=== PATIENT | female | born 1950 | race Caucasian/White ===

== ENCOUNTER 2018-06-26 05:22 | Day surgery (SDC) | payer MEDICARE ==
[~2018-06-26] VITALS: Ht 167.6 cm; Wt 81.2 kg
[2018-06-26 06:23] VITALS: BP 141/76; Ht 167.6 cm; Wt 81.2 kg
[2018-06-26 06:28] LABS: CALC OSMOLALITY 287 mosm/kg (275-300); CALCIUM 9.9 mg/dL (8.5-10.1); CARBON DIOXIDE 27.3 mmol/L (21.0-32.0); CHLORIDE - SERUM 106 mmol/L (98-107); CREATININE - SERUM 0.7 mg/dL (0.6-1.3); GLUCOSE 119 mg/dL (74-106); POTASSIUM - SERUM 3.6 mmol/L (3.5-5.1); SODIUM 143 mmol/L (136-145); UREA NITROGEN 19 mg/dL (7-18); eGFR NON AFRICAN AMERICAN 88 mL/min (90-120)
[2018-06-26 06:31] LABS: BASOPHILS 1.4 % (0-2); EOSINOPHILS 2.3 % (0-7); HEMATOCRIT 41.6 % (36.0-48.0); HEMOGLOBIN 13.8 g/dL (12-16); IMMATURE GRANULOCYTES 0.1 % (0-5); LYMPHOCYTES 33.3 % (15-50); MCH 30.4 pg (26.0-34.0); MCHC 33.2 g/dL (31.0-37.0); MCV 91.6 fL (80.0-100.0); MEAN PLATELET VOLUME 10.3 fL (7.4-10.4); MONOCYTES 9.4 % (2-11); NEUTROPHILS 53.5 % (40-80); PLATELET COUNT 292 10x3/uL (130-400); RBC 4.54 10x6/uL (4.00-5.40); RDW 13.3 % (11.5-14.5)
--- NOTE | 2018-06-28 12:17 | OP ---
PATIENT NAME: ANGELICA GARCÍA MEDICAL RECORD: [id number] :52 LOCATION:[facility] ADMISSION DATE: SURGEON: OREN MIRELES DO DATE OF OPERATION: 06/26/2018 PROCEDURE: EGD with biopsies. INDICATIONS FOR PROCEDURE: Epigastric abdominal tenderness, pain provoked by eating, stomach cramps, right upper quadrant abdominal tenderness. SCOPE: Olympus video gastroscope. MEDICATIONS: Propofol 150 mg IV per anesthesia. ESTIMATED BLOOD LOSS: Minimal. COMPLICATIONS: None. FINDINGS AND DESCRIPTION OF PROCEDURE: Informed consent was given. The patient was made comfortable with the above medication. After reaching an adequate level of sedation by slow IV push, the patient was placed on her left side. The endoscope was advanced under direct visualization through the mouth to the second portion of the duodenum with ease. The upper, middle, and lower thirds of the esophagus appeared normal. At the GE junction, there was evidence of very mild LA class A reflux-induced esophagitis. The endoscope was advanced beyond the GE junction into the stomach and retroflexed to view the cardia. There was no obvious hiatal hernia, but the GE junction was patulous and open. The fundus and body of the stomach appeared normal. As the endoscope was advanced down into the distal stomach and antrum as well as the prepyloric regions, there were patchy areas of erythema and granularity consistent with gastritis. Multiple cold forceps biopsies were taken to submit for histopathology to rule out the presence of H. pylori. The endoscope was advanced beyond the pylorus and into the duodenum. The entire examined duodenum appeared normal. Random cold forceps biopsies were taken from the bulb and second portion to submit for histopathology. The endoscope was withdrawn from the patient. The patient tolerated the procedure well and there were no complications. IMPRESSION: 1. LA class A reflux-induced esophagitis. 2. Patulous gastroesophageal junction. 3. Gastritis. Biopsies taken. PLAN AND RECOMMENDATIONS: 1. Discharge home when recovery parameters are met. 2. Follow up biopsy specimen results. 3. Recommend smaller more frequent meals while working up reasons for abdominal pain. 4. We will order a gastric emptying scan to rule out gastroparesis as a cause of the patient's symptoms. 5. Follow up in GI clinic in 3-4 weeks with further recommendations to follow findings on gastric emptying scan. TRANSINT:[id number] Voice Confirmation ID: [id number] DOCUMENT ID: [id number] OPERATIVE REPORT [id number] ANGELICA GARCÍA NATHAN A DO at 1217 CC: [id number] DICTATION DATE: 06/26/18800 EXERCISE EQUIPMENT SPECIALIST: 06/26/18818 [facility] 06/26/18 [place] [id number] [place] [id number]
== END 2018-06-26 09:15 | disposition home or self-care (01) ==
LOC: D.OPS 05:22
PROVIDERS: Anesthesiology
DX: K21.0 Gastro-esophageal reflux disease with esophagitis (principal); K29.70 Gastritis, unspecified, without bleeding

== ENCOUNTER 2018-07-10 12:45 | Day surgery (SDC) | payer MEDICARE, MEDICAID ==
[~2018-07-10] VITALS: Ht 167.6 cm; Wt 81.4 kg
[2018-07-10 13:17] LABS: HEMATOCRIT 46.2 % (36.0-48.0); HEMOGLOBIN 15.5 g/dL (12-16); MCH 30.6 pg (26.0-34.0); MCHC 33.5 g/dL (31.0-37.0); MCV 91.1 fL (80.0-100.0); MEAN PLATELET VOLUME 9.8 fL (7.4-10.4); RBC 5.07 10x6/uL (4.00-5.40); RDW 12.8 % (11.5-14.5); WBC 11.5 10x3/uL (4.8-10.8)
[2018-07-10 14:52] VITALS: BP 134/55; Ht 167.6 cm; Wt 81.4 kg
[2018-07-10] MEDS ORDERED: CIPRO250 MG PO (14:58)
[2018-07-10] MEDS ORDERED: ULTRAM50 MG PO (14:58)
[2018-07-10] MEDS ORDERED: KLONOPIN0.5 MG PO (14:59)
[2018-07-10] MEDS ORDERED: CYMBALTA60 MG PO (15:00)
[2018-07-10] MEDS ORDERED: PREDNISONE20 MG PO (15:01)
[2018-07-10] MEDS ORDERED: LEVOTHYROXINE100 MCG (15:01)
[2018-07-10] MEDS ORDERED: PROTONIX40 MG PO (15:03)
--- NOTE | 2018-07-10 16:07 | NUR ---
1555-RECD TO ROOM, ALERT. RESP WITH EASE. IV PATENT. 1600- VOISE IN TO REPORT FINDINGS. 1605-FULL LIQUIDS SERVED, PASSING FLATUS.
--- NOTE | 2018-07-10 16:35 | NUR ---
1630-IV D/C, VOIDS AND DRESSED. 1635-DISCHARGE INSTRUCTIONS REVIEWED AND D/C VIA WHEELCHAIR WITH DAUGHTER.
--- NOTE | 2018-07-12 09:41 | OP ---
PATIENT NAME: ANGELICA GARCÍA MEDICAL RECORD: [id number] :52 LOCATION:D.[facility] ADMISSION DATE: SURGEON: OREN MIRELES DO DATE OF OPERATION: 07/10/2018 PROCEDURE: Colonoscopy with polypectomy. INDICATIONS FOR PROCEDURE: Chronic constipation, stomach cramps, abdominal tenderness and personal history of polyps. Her last colonoscopy was in October of 2016 with 3 polyps removed at that time. SCOPE: Olympus video pediatric colonoscope. MEDICATIONS: Propofol 300 mg IV per anesthesia. WITHDRAWAL TIME: 11 minutes. ESTIMATED BLOOD LOSS: Minimal. COMPLICATIONS: None. FINDINGS: Informed consent was given. The patient was made comfortable with the above medication. After reaching an adequate level of sedation by slow IV push, the patient was placed on her left side. A digital rectal examination was performed and was normal. The endoscope was then advanced under direct visualization through the rectum to the cecum, confirmed by the presence of the appendiceal orifice and ileocecal valve. The endoscope was slowly withdrawn and mucosa was carefully examined. The prep quality was excellent. There were 4 polyps visualized on today's examination. Two of these polyps were located in the transverse colon. They were both benign-appearing and sessile. They ranged in size from 2-4 mm in diameter. They were both removed using hot forceps in 1 piece and completely retrieved. In the descending colon, there were 2 polyps, which were benign-appearing and sessile. They ranged in size from 1-3 mm in diameter. They were both removed using hot forceps in 1 piece and completely retrieved. There was evidence of very mild diverticulosis involving the sigmoid colon. Retroflexion was performed in the rectum with a normal appearing rectal wall. The endoscope was withdrawn from the patient. The patient tolerated the procedure well and there were no complications. IMPRESSION: 1. Mild diverticulosis of the sigmoid colon. 2. Four polyps removed using hot forceps as described above. PLAN AND RECOMMENDATIONS: 1. Discharge home when recovery parameters are met. 2. Follow up biopsy specimen results. 3. High fiber diet. 4. Continue current medications. 5. Recall colonoscopy in approximately 3 years based on number and types of polyps removed on today's examination. TRANSINT:[id number] Voice Confirmation ID: [id number] DOCUMENT ID: [id number] OPERATIVE REPORT [id number] ANGELICA GARCÍA OREN MIRELES DO at 0941 CC: [id number] DICTATION DATE: 07/10/18 1549 DEMOLITION HAMMER OPERATOR: 07/10/182031 [facility] 07/10/18 [place] [id number] [place] [address]
== END 2018-07-10 16:40 | disposition home or self-care (01) ==
LOC: D.OPS 12:45
PROVIDERS: Anesthesiology
DX: K57.30 Diverticulosis of large intestine without perforation or abscess without bleeding (principal); K63.5 Polyp of colon; D12.4 Benign neoplasm of descending colon; Z01.812 Encounter for preprocedural laboratory examination